=== PATIENT | female | born 1960 | race Caucasian/White ===

== ENCOUNTER → 2017-01-11 | Outpatient (CLI) | payer BC ==
[2017-01-11 13:58] LABS: ESTIMATED AVERAGE GLUCOSE 114 mg/dl; HA1C FLAG Normal (Normal)
[2017-01-11 14:13] LABS: BLOOD UREA NITROGEN 19 mg/dl (7-18); BUN/CREATININE RATIO 24.6 (10-20); CALCIUM 9.2 mg/dl (8.5-10.1); CARBON DIOXIDE 27 mmol/L (21-32); CHLORIDE 103 mmol/L (98-107); CREATININE 0.75 mg/dl (0.60-1.20); GLUCOSE 95 mg/dl (70-99); SODIUM 138 mmol/L (136-145)
== END | disposition home or self-care (01) ==
LOC: C.LABMFLN 09:56
PROVIDERS: ATTEND Family Medicine
DX: I10 Essential (primary) hypertension (principal); E55.9 Vitamin D deficiency, unspecified; R73.01 Impaired fasting glucose

== ENCOUNTER → 2017-06-08 | Outpatient (CLI) | payer BC ==
[~2017-06-08] MED LIST: ASPI81TA28 PO; CHLO50TA PO; ERGO500011 PO; FLUT0.15 NAE; GADAVIST IV PRN; MULT-506 PO; PRLSR20 PO; SACC250C11 PO
--- NOTE | 2017-06-09 15:32 | MAMMOGRAPHY REPORT ---
BREAST MRI OF BOTH BREASTS : 06/08/2017 CLINICAL HISTORY: 56-year-old woman with a history of left breast cancer initially diagnosed in 2005, status post breast conservation treatment. She underwent a right breast biopsy in 2008 for clumped non-mass enhancement seen in the right lower inner quadrant which presumably yielded benign pathology results as the biopsy clip remains in place. A recent biopsy of a suspicious mass in the 4:00 left breast performed on 04/27/2017 yielded infiltrative ductal carcinoma, representing a left breast recur rence. Patient also has dense breasts mammographically, and presents to evaluate extent of disease. COMPARISON: Prior breast MRI dated 01/19/2008, screening mammograms performed 02/20/2011, 03/22/2012, 06/02, 06/04/2014, 01/20/2016, diagnostic mammograms dated 04/27/2017, 06/20/2014, ultrasound and ultrasou nd-guided core biopsy dated 04/27/2017. TECHNIQUE: Using a 1.5 Radha magnet and dedicated breast coil, multisequence axial images were obtain ed through the breasts. After uneventful IV administration of 9 mL of Gadavist, dynamic multiphase c ontrast-enhanced axial images, and sagittal postcontrast were obtained. Temporal subtraction axial i mages and 3-D MIP images are provided. Everything was then reviewed on a 3-D workstation, [employer]. FINDINGS: Right breast: There is mild to moderate background parenchymal enhancement of the right breast. Ther e is a small focus of susceptibility artifact in the lower inner anterior right breast at approximate ly 4:00, that is just medial to clumped non-mass enhancement in the 4:00 to 5:00 middle one third of the right breast, denoting the site of prior MRI guided biopsy. It is difficult to accurately compar e back to the 2008 MRI given differences in technique although the enhancement appears more avid and conspicuous comparing to the prior MRI, currently spending 4.8 cm in AP by 2.5 cm in craniocaudal by 1.2 cm in transverse dimension. The MRI appearance could represent DCIS. There are also at least 3 small irregular enhancing/rim-enhancing masses in the lower outer right breast at approximately 7 to 8:00, none of which were present on the prior 2008 MRI. The first mass is located in the 7:00 to 8:0 0 anterior right breast measuring 5 x 5 x 6 mm, with non-circumscribed margins and predominantly plat eau kinetics with a central focus of washout kinetics. The second mass is in the 7:[address] of the right breast, has angular borders and non-circumscribed margins, measuring 5 x 6 x 6 mm and demonstrates predominantly persistent kinetics. The third non-circumscribed mass is in the posterio r 8:00 axis near the fatglandular interface measuring 4 x 5 x 6 mm and demonstrating central washout kinetics. All of these masses are suspicious for malignancy. Targeted second look ultrasound with possible ultrasound-guided core biopsy is recommended. The right axillary lymph nodes appear similar in size comparing to the 2008 MRI and are likely within the range of normal. Left breast: There is mild to moderate background parenchymal enhancement of the left breast. There is expected architectural distortion in the upper outer middle one third of the left breast, denoting the site of prior lumpectomy. There is an irregular and spiculated dominant enhancing mass in the 4 :00 middle one third of the left breast measuring 13 x 18 x 15 mm, which demonstrates predominantly w ashout kinetics with some peripheral areas of plateau and persistent kinetics and is T2 iso-to hypoin tense, not present in 2008. This represents the recent biopsy-proven carcinoma. There is a second n ew enhancing irregular mass in the approximate 3:00 middle one third of the left breast measuring 6 x 6 x 5 mm (axial page 65/122, sagittal page 18/128), also demonstrates central washout kinetics and i s T2 dark, concerning for multifocal disease. Targeted second look ultrasound and possible ultrasoun d-guided core biopsy is recommended. Some linear and curvilinear areas of enhancement are seen in th e upper outer anterior approximate 2:00 to 3:00 left breast near the surgical site with mild patchy a reas of persistent kinetics, which could represent DCIS or additional multifocal disease. No other s uspicious enhancing masses, definite non-mass enhancement or unexpected areas of architectural distor tion are seen in the left breast. The left axillary and upper outer quadrant intramammary lymph node s appear slightly plump but they appear generally stable mammographically and may be within the range of normal. Nevertheless, additional targeted left axillary ultrasound should be performed at time o f second look ultrasound for the 6 mm mass in the 3:00 left breast to assess morphology. No suspicious internal mammary or subpectoral lymphadenopathy is identified. IMPRESSION: ACR BI-RADS CATEGORY 4: SUSPICIOUS 1. Irregular and spiculated enhancing 18 mm mass in the 4:00 middle one third of the left breast rep resents the recent biopsy-proven infiltrative ductal carcinoma. Based on prior records revealing the patient's history, this represents recurrent disease. 2. There is a second, 6 mm enhancing mass in the left breast at approximately 3:00 middle one third near architectural distortion from a prior lumpectomy site, that was not present on the prior 2008 east MRI and is suspicious for multifocal disease. Targeted second look ultrasound with possible ult rasound-guided core biopsy is recommended. 3. There is more subtle linear non-mass enhancement in the approximate 2:00 anterior left breast tootie t could represent DCIS, located somewhat near the lumpectomy bed. If the 6 mm mass in the 3:00 left breast is identified, this finding will likely not need to be biopsied. 4. There are 3 subcentimeter irregular enhancing masses in the right breast at approximately 7:00 to 8:00 anterior through posterior aspect of the breast, also new comparing to the 2008 breast MRI, tootie t are suspicious for contralateral disease. Targeted second look ultrasound with biopsy of 1 of the masses if identified is recommended. 5. Clumped non-mass enhancement in the lower inner quadrant of the right breast at approximately 4:0 0, with adjacent biopsy marker clip, spanning 4.8 cm in greatest dimension. This clumped non-mass en hancement is more prominent when compared to the 2008 breast MRI, and the MRI biopsy images are unava ilable, to assess for adequate tissue sampling. However, this may not need to be biopsied if 1 of th e other smaller masses in the lateral right breast is identified and biopsied. 6. Slightly plump left axillary lymph nodes, which appear somewhat similar compared to the right axi llary lymph nodes, and also appear relatively stable mammographically comparing back to at least the 2012 mammograms. Nevertheless, targeted left axillary ultrasound is recommended to assess morphology . (If the patient returns to our institution for further workup, would recommend 1 hour and 15 minute a ppointment) The patient will be called to schedule an appointment. Devika Grewal M.D. ay/:06/08/2017 21:22:33 Learning Manager: make up man, [facility] letter sent: Abnormal 4/5 BI-RADS Code: ACR BI-RADS Category 4: Suspicious
== END | disposition home or self-care (01) ==
LOC: C.MRI 08:55
PROVIDERS: ATTEND Internal Medicine Hematology & Oncology
DX: C50.512 Malignant neoplasm of lower-outer quadrant of left female breast (principal); N63.11 Unspecified lump in the right breast, upper outer quadrant; Z86.000 Personal history of in-situ neoplasm of breast; Z80.3 Family history of malignant neoplasm of breast

== ENCOUNTER → 2017-06-16 | Outpatient (CLI) | payer BC ==
[~2017-06-16] MED LIST changes: -GADAVIST IV PRN
[2017-06-16 13:16] LABS: BLOOD UREA NITROGEN 14 mg/dl (7-18); CALCIUM 9.1 mg/dl (8.5-10.1); CARBON DIOXIDE 32 mmol/L (21-32); CREATININE 0.74 mg/dl (0.60-1.20); GLUCOSE 147 mg/dl (70-99); POTASSIUM 3.1 mmol/L (3.5-5.1); SODIUM 138 mmol/L (136-145)
== END | disposition home or self-care (01) ==
LOC: C.LABMFLN 08:44
PROVIDERS: ATTEND Family Medicine
DX: E87.6 Hypokalemia (principal)

== ENCOUNTER 2017-06-21 06:33 | Observation (INO) | payer BC ==
[2017-06-08 10:49] VITALS: BMI 34.0
[2017-06-08 11:38] LABS: BASO % 0.4 %; BASO ABS # 0.03 K/uL (0-0.2); EOS % 1.6 %; EOS ABS # 0.13 K/uL (0-0.5); HEMATOCRIT 40.1 % (37-47); HEMOGLOBIN 13.7 g/dL (12.0-16.0); IG# 0.02 K/uL (0.00-0.02); LYMPH % 21.4 %; LYMPH ABS # 1.72 K/uL (1.2-3.4); MEAN CELL VOLUME 84.2 fL (80-100); MEAN CORPUSCULAR HEMOGLOBIN 28.8 pg (25-34); MEAN CORPUSCULAR HGB CONC 34.2 g/dl (32-36); MEAN PLATELET VOLUME 10.7 fL (7.4-10.4); MONO % 7.6 %; MONO ABS # 0.61 K/uL (0.11-0.59); NEUT % 68.8 %; NEUT ABS # 5.51 K/uL (1.4-6.5); PLATELET COUNT 268 K/uL (130-400); RED CELL DISTRIBUTION WIDTH CV 14.1 % (11.5-14.5); RED CELL DISTRIBUTION WIDTH SD 43.1 fL (36.4-46.3); WHITE BLOOD COUNT 8.02 K/uL (4.8-10.8)
[2017-06-08 11:50] LABS: INR 0.9 (0.9-1.1); PTT PATIENT 25.1 SECONDS (21.0-31.0)
[2017-06-08 12:58] LABS: CALCIUM 9.6 mg/dl (8.5-10.1); CREATININE 0.69 mg/dl (0.60-1.20); POTASSIUM 2.8 mmol/L (3.5-5.1)
[2017-06-21] VITALS (7 sets, daily range): BP systolic 114–160; BP diastolic 69–86; PULSE 86–113; TEMP 36.5–37.1; O2SAT 93–100; Ht 165.1 cm; Wt 93.7 kg
[~2017-06-21] VITALS: Ht 165.1 cm; Wt 93.7 kg
[~2017-06-21 06:33] MED LIST changes: +CEFAZOLIN 2000MG IV PUSH 15 ML IV SCH; +LACTATED RINGER'S 1000ML 1,000 ML IV SCH
[2017-06-21] MEDS ORDERED: MIDAZOLAM HCL 1 MG/ML 2ML VIAL ONE (06:57)
[2017-06-21] MEDS ORDERED: FENTANYL CITRATE INJ 50 MCG/1 ML 2 ML VIAL ONE ×2 (06:57→10:49)
[2017-06-21] MEDS ORDERED: HYDROmorphone INJ 2 MG/ML SYR/VIAL ONE (06:57)
[2017-06-21] MEDS ORDERED: ACETAMINOPHEN 1000 MG/100 ML IV IV ONE (07:07)
[2017-06-21] MEDS ORDERED: Potassium chloride PO (07:18)
[2017-06-21] MEDS ORDERED: BUPIVACAINE 0.25% 30 ML VIAL ONE ×3 (07:36→09:32)
[2017-06-21] MEDS ORDERED: LIDOCAINE/EPINEPHRINE 1% 20 ML VIAL ONE ×2 (07:37→09:32)
[2017-06-21] MEDS ORDERED: BUPIVACAINE 0.5 % 5 MG/1 ML MPF 30ML VIAL ONE (07:38)
[2017-06-21] MEDS ORDERED: BACITRACIN 50000 UNIT VIAL ONE (07:39)
[2017-06-21] MEDS ORDERED: GENTAMICIN SULFATE 40 MG/ML 2 ML VIAL ONE ×2 (07:39→07:41)
[2017-06-21] MEDS ORDERED: ISOSULFAN BLUE 10 MG/ML VIAL 5 ML ONE (07:39)
[2017-06-21] MEDS ORDERED: CEFAZOLIN SOD 1 GM VIAL ONE ×3 (07:40→13:28)
[2017-06-21 07:43] LABS: CALCIUM 8.7 mg/dl (8.5-10.1); CREATININE 0.79 mg/dl (0.60-1.20); POTASSIUM 3.4 mmol/L (3.5-5.1)
[2017-06-21] MEDS ORDERED: LABETALOL HCL IV 5 MG/ML 20ML IV PRN (08:15)
[2017-06-21] MEDS ORDERED: KETOROLAC TROMETHAMINE 30 MG/ML VIAL IV. PRN (08:15)
[2017-06-21] MEDS ORDERED: ATROPINE SULFATE 0.1 MG/ML 5ML SYR IV PRN (08:15)
[2017-06-21] MEDS ORDERED: FENTANYL CITRATE INJ 50 MCG/1 ML 2 ML VIAL IV PRN (08:15)
[2017-06-21] MEDS ORDERED: ONDANSETRON INJ 2 MG/ML 2 ML VIAL IV PRN ×2 (08:15→14:15)
--- NOTE | 2017-06-21 08:15 | History & Physical Bridge Note ---
H&P Re-Evaluation Bridge Note: I have examined the patient, reviewed the History & Physical and in the interval since the performance of the History & Physical I have noted the following changes of clinical significance: No changes noted
--- NOTE | 2017-06-21 08:16 | History and Physical ---
History & Physical Date June 21, 2017. Chief Complaint breast cancer History of Present Illness The patient is a 57 year old female with history of breast cancer for Bilateral mastectomy with reconstruction and sentinel lymph node bx Additional History Hepatic Disease: No Endocrine Disorder: No Kidney Disease: No Heart Disease: No Allergies Coded Allergies: Doxycycline (Verified Allergy, Unknown, PT UNSURE OF RXN, 06/08/17) Home Medications Scheduled Aspirin (Aspirin Ec), 81 MG PO HS Chlorthalidone (Chlorthalidone), 1 TAB PO HS Ergocalciferol (Vitamin D 80704 Unit), 1 TAB PO Q2WK Multivitamin (Multivitamin), 1 TAB PO HS Saccharomyces Boulardii (Probiotic), 1 CAP PO QAM [Potassium chloride], 1 TABS PO QID Scheduled PRN Fluticasone Propionate (Nasal) (Flonase Allergy Relief), 1 SPRAY MAURO UD PRN for PRN Omeprazole (Prilosec), 20 MG PO DAILY PRN for Indigestion Physical Examination Skin: warm/dry Eyes: sclerae normal Head: atraumatic Neck: supple Respiratory/Chest: no respiratory distress Cardiovascular: regular rate, rhythm Abdomen / GI: non tender Neurologic/Psych: alert Diagnosis breast cancer Plan of Treatment for bilateral mastectomy with sentinel lymph node bx- bilateral and reconstruction
[2017-06-21] MEDS ORDERED: PANTOprazole SOD 40 MG TAB PO PRN (09:00)
[2017-06-21] MEDS ORDERED: SCOPOLAMINE 1.5 MG TDSY TD ONE (09:04)
--- NOTE | 2017-06-21 09:49 | DIAGNOSTIC IMAGING REPORT ---
BILATERAL LYMPH SENTINEL NODE ID CLINICAL HISTORY: BREAST CA COMPARISON STUDY: No previous studies for comparison. FINDINGS: A timeout was performed. Both breasts were prepped in sterile fashion. 5 periareolar injections were performed into the right breast utilizing a total dose of 0.6 mCi of technetium 99m Lymphoseek. 5 periareolar injections were performed into the left breast utilized a total dose of 0.5 mCi of technetium 99m Lymphoseek. No imaging was performed. The patient was sent to the operating room for intraoperative localization. IMPRESSION: Bilateral lymphoscintigraphy breast injections were performed. Electronically signed by: Osmin Lai M.D. 06/21/2017 9:47 AM Dictated Date/Time: 06/21/2017 9:45 AM
[2017-06-21] MEDS ORDERED: DiphenhydrAMINE HCL 50 MG/ML VIAL ONE (10:12)
[2017-06-21] MEDS ORDERED: METOCLOPRAMIDE HCL INJ 5 MG/ML 2 ML VIAL ONE (10:12)
[2017-06-21] MEDS ORDERED: PROPOFOL IV EMULSION 10 MG/ML 20 ML VIAL ONE (10:12)
[2017-06-21] MEDS ORDERED: ONDANSETRON INJ 2 MG/ML 2 ML VIAL ONE (10:12)
[2017-06-21] MEDS ORDERED: LIDOCAINE HCL 2% 2 ML VIAL (20MG/ML) ONE (10:12)
--- NOTE | 2017-06-21 11:58 | [facility] Operative Report ---
Operative Report Operative Date June 21, 2017. Pre-Operative Diagnosis breast cancer Post-Operative Diagnosis same as preop Procedure(s) Performed Bilateral Breast Mastectomy with Bilateral [place] Lymph Node Biopsy ( Injection Only) - Dr. Agudelo Bilateral First Stage Immediate Breast Reconstruction with Tissue Expanders an Acellular Dermal Matrix - Dr. Thao Nuc Med @ [address] Kyrie Agudelo, Dr. Karon Thao Hearing Aid Specialist Surgeon(s) Mia Herndon PA-C Estimated Blood Loss 40cc (mastectomy procedures) Specimens Frozen Specimen #2: -left sentinel lymph node - out of room to lab at 1113 by Julius Wilson OR [place] Anesthesia Type General Complication(s) none I attest to the content of the Intraoperative Record and any orders documented therein. Any exceptions are noted below.
[2017-06-21] MEDS ORDERED: NEOSTIGMINE METHYLSULFATE 5 MG/5 ML SYR ONE (12:32)
[2017-06-21] MEDS ORDERED: GLYCOPYRROLATE INJ 0.2 MG/ML VIAL ONE (12:32)
--- NOTE | 2017-06-21 12:37 | OPERATIVE REPORT ---
DATE OF OPERATION: 06/21/2017 NAME OF OPERATION: Bilateral mastectomy with sentinel lymph node biopsy. PREOPERATIVE DIAGNOSIS: Left breast cancer with recurrence. POSTOPERATIVE DIAGNOSIS: Left breast cancer with recurrence. STAFF SURGEON: Kyrie Agudelo MD. PROJECT MANAGER: Mia Herndon. Also Dr. Thao proceeded with reconstruction. DESCRIPTION OF PROCEDURE: The patient was brought in the operating room and placed on the operating table in supine position. Her breasts had been marked. She had undergone injection in nuclear medicine for sentinel lymph node biopsy. Garcia catheter, pneumatic stockings, and orogastric tube were placed. Her neck, chest, and upper abdomen were prepped and draped in the usual fashion and axilla bilaterally using Betadine. She was then draped in the usual fashion. The right side was approached first because there was no proven cancer on that side. Incision was made in the right axilla using 0.5% plain Marcaine to anesthetize the skin. Carrying dissection down deeply, I was able to identify some scant activity and found a very large lymph node, which was sent for frozen section and found to be negative. During the frozen section, we performed mastectomy on the right side making elliptical incisions just above and below the areola. The lower incision was actually under a prior scar from a breast reduction. A superior flap was created dissecting the breast tissue away from the subcutaneous tissue encountering scar tissue from the previous reduction. The lower flap was also taken down to the upper abdominal wall. The breast tissue was then dissected away from the pectoralis major muscle taking the fascia, and then, the breast was marked with a long silk suture lateral. At this point, Dr. Thao took over on the right side proceeding with her reconstruction. I proceeded to the left side, again making incision in the left axilla, finding a very large lymph node, which was also noted preoperatively. It was sent for frozen section and found to be negative. During the frozen section, we performed mastectomy on the left side encountering several areas of scar tissue from reduction and also from prior breast surgery. The breast tissue was dissected away from the pectoralis muscle taking the fascia, and then, the specimen was marked with a long silk suture lateral. At this point, Dr. Thao proceeded with her portion of the procedure. I attest to the content of the Intraoperative Record and any orders documented therein. Any exception s are noted below.
[2017-06-21] MEDS ORDERED: ROCURONIUM BROMIDE 10 MG/ML 5 ML VIAL ONE (13:06)
--- NOTE | 2017-06-21 13:49 | [facility] Post Operative Brief Note ---
Immediate Operative Summary Operative Date June 21, 2017. Pre-Operative Diagnosis breast cancer Post-Operative Diagnosis same as preop Procedure(s) Performed Bilateral Breast Mastectomy with Bilateral [place] Lymph Node Biopsy ( Injection Only) - Dr. Agudelo Bilateral First Stage Immediate Breast Reconstruction with Tissue Expanders an Acellular Dermal Matrix - Dr. Thao Nuc Med @ [address] Kyrie Agudelo, Dr. Karon Thao Forensics Analyst Surgeon(s) Mia Herndon PA-C Estimated Blood Loss 50ml Findings Consistent with Post-Op Diagnosis Specimens Fresh Specimen: B.) Left Breast Tissue - long silk lateral Drains None JPx2 Anesthesia Type General Complication(s) none Disposition Disposition: Recovery Room / PACU
[2017-06-21] MEDS ORDERED: OXAZEPAM 10MG CAP PO PRN (14:15)
[2017-06-21] MEDS ORDERED: PROMETHAZINE HCL INJ 12.5 MG in SODIUM CHLORIDE 0.9% 50ML 50 ML IV PRN (14:15)
[2017-06-21] MEDS ORDERED: ACETAMINOPHEN 325 MG TAB PO PRN (14:15)
[2017-06-21] MEDS ORDERED: OXYCODONE/ACETAMINOPHEN 5-325 TAB PO PRN ×2 (14:15)
[2017-06-21] MEDS ORDERED: DiphenhydrAMINE HCL 50 MG/ML VIAL IV PRN (14:15)
[2017-06-21] MEDS ORDERED: MoRPHine SULFATE 4 MG/ML 1 ML CARP\\VIAL IV PRN ×2 (14:15)
[2017-06-21] MEDS ORDERED: IV FLUIDS COMPLETED PRN (14:30)
[2017-06-21] MEDS ORDERED: KETOROLAC TROMETHAMINE 30 MG/ML VIAL ONE (14:53)
--- NOTE | 2017-06-21 15:07 | Anesthesiology Progress Note ---
Anesthesia Post Op Note Date & Time June 21, 2017 at 15:07 Vital Signs Pain Intensity: 0 Vital Signs Past 12 Hours Date Time Temp Pulse Resp B/P (MAP) Pulse Ox O2 Delivery O2 Flow Rate FiO2 06/21/17 15:00 99 14 119/82 95 Nasal Cannula 3 06/21/17 14:50 98 14 131/82 95 Nasal Cannula 3 06/21/17 14:40 36.5 97 14 138/80 95 Nasal Cannula 3 06/21/17 14:30 100 14 137/80 96 Nasal Cannula 3 06/21/17 14:20 104 16 134/77 97 Oxymask 5 06/21/17 14:10 97 16 131/70 96 Oxymask 5 06/21/17 14:02 36.4 94 16 119/71 95 Oxymask 10 06/21/17 07:22 36.5 86 20 160/86 100 Room Air Notes Mental Status: alert / awake / arousable, participated in evaluation Pt Amnestic to Procedure: Yes Nausea / Vomiting: adequately controlled Pain: adequately controlled Airway Patency, RR, SpO2: stable & adequate BP & HR: stable & adequate Hydration State: stable & adequate Anesthetic Complications: no major complications apparent
--- NOTE | 2017-06-21 15:31 | OPERATIVE REPORT ---
DATE OF OPERATION: 06/21/2017 PREOPERATIVE DIAGNOSES: Left breast carcinoma, status post bilateral mastectomy, desire for breast reconstruction. POSTOPERATIVE DIAGNOSES: Left breast carcinoma, status post bilateral mastectomy, desire for breast reconstruction. PROCEDURE: First stage immediate bilateral breast reconstruction with tissue expanders and AlloDerm. SURGEON: Karon Thao M.D. ORAL HYGIENIST: Mia Herndon PA-C. ANESTHESIA: General. COMPLICATIONS: None. INDICATION FOR THE PROCEDURE: Patient is a 57-year-old female referred to me by Dr. Agudelo who required mastectomy for left breast carcinoma and desired reconstruction. We discussed multiple options including tissue treasury director based reconstruction, autologous reconstruction, and no reconstruction. After discussion, she elected to proceed with tissue treasury director placement at the time of mastectomy. BRIEF DESCRIPTION OF THE PROCEDURE: The risks, benefits and alternatives of the procedure were explained to the patient who agreed and signed consent. She was identified and marked in the preoperative holding area. She was marked with Dr. Agudelo so we could discuss incisional planning. Patient had a prior history of reduction mammoplasty, the Contreras pattern incision with an inframammary fold scar that was about 2 cm superior to the folds bilaterally. Discussed whether to proceed with a Contreras pattern skin resection versus traditional elliptical mastectomy incision, placing the incision along the inframammary fold. We ultimately elected to proceed with elliptical incision. Patient was brought to the operating room, placed under anesthesia and underwent bilateral mastectomy. After Dr. Agudelo had completed the right noncancerous mastectomy, I scrubbed to begin reconstruction of the right breast. The pocket was examined for hemostasis and hemostasis was achieved with electrocautery. It was irrigated with normal saline. I began with elevation of the pectoralis major muscle along the attachments to the rib, medially to the sternum. I did not release any of the sternal attachments. The pectoralis major muscle was then elevated using electrocautery taking care to cauterize the perforating vessels. The medial tendinous insertions were also cauterized. Once the pocket had been created, I selected a piece of thick medium contour AlloDerm and this was soaked in saline bath prior to implantation. I began by suturing the AlloDerm to the rib periosteum and to the inframammary fold using U sutures. This was performed all the way along the inframammary fold. The pocket was then measured and noted to have a base diameter of 14 cm. Therefore, an Allergan 133 MVT style treasury director was selected. It was prepared on the back table by aspirating air through the port and soaking in triple antibiotic irrigation. It was then placed into the pocket and suture tabs were sutured down at all 3 locations to periosteum and muscle fascia. Prior to implantation, a total of 50 mL of sterile injectable saline was injected through the fill port. Closure of the pocket was then begun using running 2-0 Vicryl suture to suture the inferior border of the pectoralis muscle to the superior edge of the AlloDerm. Laterally the AlloDerm was sutured down using 2-0 Vicryl U sutures to serratus fascia. Excess AlloDerm was trimmed. I then instilled an extra 50 mL of injectable saline prior to beginning closure. A 15 Lao Bharat drain was placed in the wound bed and brought out through a separate stab incision. The wound was reapproximated using 2-0 Vicryl deep dermal suture, 3-0 PDS running superficial dermal Quill suture and 3-0 Monocryl running subcuticular suture. Due to mismatch in the amount of skin in the superior and inferior flaps, Vicryl closure was performed using essentially splitting or having the location of the sutures to try to provide better match. Prior to placing the Quill suture, an additional 100 mL of saline was placed after using the Magna Finder to identify the port. This allowed more of a shape of the breast prior to closure with the Quill and Monocryl. Drain was sutured into place using 3-0 nylon suture. A 10 mL of 0.25% Marcaine plain was instilled through the RAKESH drain followed by 10 mL of sterile saline. The right axillary node incision was closed using 2-0 Vicryl deep dermal sutures and 4-0 Monocryl running subcuticular suture. Once Dr. Agudelo completed the mastectomy on the right side, an identical procedure was performed and 200 mL total of injectable saline was placed. There was reasonable symmetry following the end of the case. It should be noted there were standing cutaneous deformities medially and laterally. Due to minimal contour of the breast following placement of only 200 mL, I did not elect to treat the dog ears at this point in time and would prefer to see the shape of the breast as expansion occurs. Dog ears can be revised at the time of implant exchange or nipple reconstruction if the patient elects to proceed with this. I only placed 200 mL in each treasury director due to concern for tension on the skin as closure was somewhat tight. Procedure was tolerated well. Dry dressings were placed. The patient was awakened and transferred to recovery room in satisfactory condition. Mia Herndon PA-C was present and scrubbed throughout the entire procedure and was instrumental in assisting in retraction and simultaneous wound closure as well as preparing of the tissue expanders. I attest to the content of the Intraoperative Record and any orders documented therein. Any exception s are noted below.
[2017-06-21] MEDS: MoRPHine SULFATE 4 MG/ML 1 ML CARP\\VIAL IV PRN ×2 (16:21→23:33)
[2017-06-21] MEDS: POTASSIUM CHLORIDE 10 MEQ TABCR PO SCH ×2 (17:46→20:31)
[2017-06-21] MEDS: CEFAZOLIN IV 2,000 MG in SYRINGE 0 ML IV SCH (19:54)
[2017-06-21] MEDS: LACTATED RINGER'S 1000ML 1,000 ML IV SCH (20:51)
[2017-06-21] MEDS ORDERED: MULTIVITAMIN TAB PO SCH (21:00)
[2017-06-21] MEDS ORDERED: CHLORTHALIDONE 25 MG TAB PO SCH (21:00)
[2017-06-22] VITALS (11 sets, daily range): BP systolic 110–124; BP diastolic 67–74; PULSE 82–98; TEMP 36.2–36.9; O2SAT 85–97
[2017-06-22] MEDS: LACTATED RINGER'S 1000ML 1,000 ML IV SCH (03:24)
[2017-06-22] MEDS: CEFAZOLIN IV 2,000 MG in SYRINGE 0 ML IV SCH (03:35)
--- NOTE | 2017-06-22 08:02 | Surgery Progress Note ---
Surgery Progress Note Date of Service June 22, 2017. Subjective Post OP Day: 1 + feeling well, + ambulating, + pain controlled VSS with O2 by nasal cannula Objective Vital Signs: Date Time Temp Pulse Resp B/P (MAP) Pulse Ox O2 Delivery O2 Flow Rate FiO2 06/22/17 03:32 95 Nasal Cannula 2.0 06/22/17 03:32 36.8 86 16 124/68 (86) 85 Room Air 06/22/17 00:23 98 06/21/17 23:30 36.9 104 16 121/74 (90) 94 Room Air 06/21/17 23:30 Room Air 06/21/17 19:00 37.0 109 18 114/69 (84) 93 Nasal Cannula 06/21/17 18:15 37.1 113 16 126/84 (98) 95 Nasal Cannula 06/21/17 16:30 36.6 100 16 118/76 (90) 94 Nasal Cannula 06/21/17 16:00 36.6 105 16 119/75 (90) 95 Nasal Cannula 06/21/17 15:30 94 Nasal Cannula 3.0 06/21/17 15:30 36.8 98 18 120/75 (90) 94 Nasal Cannula 3.0 06/21/17 15:30 94 Nasal Cannula 3.0 06/21/17 15:25 36.4 99 14 129/78 94 Nasal Cannula 3 06/21/17 15:15 97 14 122/76 95 Nasal Cannula 3 06/21/17 15:00 99 14 119/82 95 Nasal Cannula 3 06/21/17 14:50 98 14 131/82 95 Nasal Cannula 3 06/21/17 14:40 36.5 97 14 138/80 95 Nasal Cannula 3 06/21/17 14:30 100 14 137/80 96 Nasal Cannula 3 06/21/17 14:20 104 16 134/77 97 Oxymask 5 06/21/17 14:10 97 16 131/70 96 Oxymask 5 06/21/17 14:02 36.4 94 16 119/71 95 Oxymask 10 Physical Exam: Bharat drainage (bloody and serous) General Appearance: WD/WN, no apparent distress Incision(s): clean, dry, intact, no erythema Assessment & Plan s/p bilateral mastectomy with immediate first stage breast reconstruction using tissue expanders and alloderm matrix 1. O2 by nasal cannula, dropped on room air last night. continue to wean back to room air. IS encouraged 2. pain controlled and ambulating. d/c home when VSS. Post-op instructions reviewed with the patient
--- NOTE | 2017-06-22 08:06 | Discharge Instructions ---
Discharge Instructions Date of Service June 22, 2017. Admission Reason for Admission: Left Breast Cancer W/Nm Lymph Inj Discharge Discharge Diagnosis / Problem: left breast cancer Discharge Goals Goal(s): Decrease discomfort, Improve function Activity Recommendations Activity Limitations: per Instructions/Follow-up section ACTIVITY RECOMMENDATIONS: __Normal activities _x_No bending, lifting or straining. Limit arm movements above shoulder height _x_No driving __Driving allowed when you are off pain medications _x_Walking permitted __You should have help at home for ___ days DRESSINGS: __No dressings required _x_Keep dressings dry/in place until first office visit __Remove dressings ___ and leave dressings off __Apply ice ___ days __Remove dressings and reapply garment __Apply antibiotic ointment (Bacitracin, Neosporin, etc) to wounds 3-4 times/ day for 10 days BATHING: _x_Keep dressings dry __Sponge bathing permitted __Showering permitted x__No swimming, hot tubs or soaking in a tub. No showers while drains are in place. You may sponge bathe/wash hair with help if you keep water away from incisions/drains MEDICATIONS: Resume previous medications unless instructed otherwise by your surgeon. _x_Do not use aspirin, Motrin, Advil or Ibuprofen as these may promote bleeding. Please use Tylenol. _x_Prescription(s) provided: pain medication and antibiotics were provided at your last office visit. Start antibiotics today. You must remain on antibiotics while drains are in place. Call office if you need a refill OTHER INSTRUCTIONS: _x_Record drain output 2-3 times per day. Drains are ready to be removed when output is 10cc or less for 24 hours x 2 days. Sometimes one drain is ready to be removed before the other and this is OK- we will remove one drain at a time if it is ready SPECIAL CARE INSTRUCTIONS: * It is normal to have a mild fever after surgery. If your temperature is higher than 101.5 degrees F, please call the office at [phone]. * Constipation is a typical side effect of pain medication. An over-the- counter stool softener will help relieve this. * Leaking around surgical drains may occur and should not cause concern. Sometimes these drains become clogged. If this happens, remove the bulb and milk the clot out of the tube, then replace the bulb. * Drainage from wounds after liposuction is normal and should be expected. Garments will become soiled. You should protect furniture and bedding. This drainage should mostly subside within 2-3 days. Leave garments in place unless instructed to remove them. * If you have unusual drainage from a wound or are concerned you have an infection or have any questions or concerns, please call the office at [phone]. FOLLOW UP VISIT: If not already scheduled, please call the office, , when you return home after surgery to schedule an appointment to be seen in __2_ days. We are in office the rest of the week- call anytime with questions or concerns. . Current Hospital Diet Patient's current hospital diet: Regular Diet Discharge Diet Recommended Diet: Regular Diet Procedures Procedures Performed: Bilateral Breast Mastectomy with Bilateral [place] Lymph Node Biopsy ( Injection Only) - Dr. Agudelo Bilateral First Stage Immediate Breast Reconstruction with Tissue Expanders an Acellular Dermal Matrix - Dr. Thao Nuc Med @ 0800 Pending Studies Studies pending at discharge: yes List of pending studies: pathology Medical Emergencies . Who to Call and When: Medical Emergencies: If at any time you feel your situation is an emergency, please call 911 immediately. . Non-Emergent Contact Non-Emergency issues call your: Primary Care Provider, Surgeon . "Provider Documentation" section prepared by Mia Herndon. . [place] Drug Monitoring Program Search Results: no issues identified
[2017-06-22] MEDS ORDERED: MULTIVITAMIN TAB PO SCH (09:00)
[2017-06-22] MEDS ORDERED: SACCHAROMYCES BOUL (FLORASTOR) 250 MG CAP PO SCH (09:00)
[2017-06-22] MEDS ORDERED: ENOXAPARIN 40 MG/0.4 ML SYR SQ SCH (09:00)
[2017-06-22] MEDS: POTASSIUM CHLORIDE 10 MEQ TABCR PO SCH (09:37)
--- NOTE | 2017-06-22 10:12 | Anesthesiology Progress Note ---
Anesthesia Post Op Note Date & Time June 22, 2017 at 10:12 Vital Signs Pain Intensity: 3.0 Vital Signs Past 12 Hours Date Time Temp Pulse Resp B/P (MAP) Pulse Ox O2 Delivery O2 Flow Rate FiO2 06/22/17 10:06 36.9 87 15 95 Room Air 06/22/17 09:13 95 Room Air 06/22/17 09:00 87 95 Room Air 06/22/17 08:55 89 90 Room Air 06/22/17 08:50 89 95 Room Air 06/22/17 08:05 36.9 06/22/17 07:45 36.2 82 15 116/74 (88) 93 Nasal Cannula 2.0 06/22/17 07:10 Nasal Cannula 2.0 06/22/17 03:32 95 Nasal Cannula 2.0 06/22/17 03:32 36.8 86 16 124/68 (86) 85 Room Air 06/22/17 00:23 98 06/21/17 23:30 36.9 104 16 121/74 (90) 94 Room Air 06/21/17 23:30 Room Air Notes Mental Status: alert / awake / arousable, participated in evaluation Pt Amnestic to Procedure: Yes Nausea / Vomiting: adequately controlled Pain: adequately controlled Airway Patency, RR, SpO2: stable & adequate BP & HR: stable & adequate Hydration State: stable & adequate Anesthetic Complications: no major complications apparent
--- NOTE | 2017-06-23 12:36 | Discharge Summary ---
Discharge Summary Date of Service June 23, 2017. Admission Date/Reason June 21, 2017 at 14:08 Left Breast Cancer W/Nm Lymph Inj. Discharge Date/Disposition June 22, 2017 Home Diagnosis Principal Diagnosis: history of left breast cancer, encounter for breast reconstruction following mastectomy Medication Reconciliation Continued Medications: Chlorthalidone (Chlorthalidone) 50 Mg Tab 1 TAB PO HS Ergocalciferol (Vitamin D 06022 Unit) 50,000 Unit Cap 1 TAB PO Q2WK, CAP Fluticasone Propionate (Nasal) (Flonase Allergy Relief) 50 Mcg/Act Spr 1 SPRAY MAURO UD PRN for PRN Multivitamin (Multivitamin) Tab 1 TAB PO HS, TAB Omeprazole (Prilosec) 20 Mg Capcr 20 MG PO DAILY PRN for Indigestion, CAP Saccharomyces Boulardii (Probiotic) 250 Mg Cap 1 CAP PO QAM [Potassium chloride] () 1 TABS PO QID Discontinued Medications: Aspirin (Aspirin Ec) 81 Mg Tab 81 MG PO HS Admission Physical Exam As per Admitting History & Physical. Hospital Course Patient presented to [facility] with history of left breast cancer. She was taken to the OR and underwent bilateral mastectomy with bilateral SLNB by Dr. Agudelo and immediate first stage breast reconstruction using tissue expanders and alloderm matrix by Dr. Thao. There were no intraoperative complications. 200cc of injectable saline were placed in each tissue patient consumer marketer. She was taken to recovery and transferred to med/surg for observation. Her O2 sats dropped on room air but VSS with 2L oxygen by nasal cannula. On POD#1, her oxygen was weaned back to room air and her vitals remained stable. She was ambulating and tolerating a regular diet. On exam, her incisions were CDI and drains had bloody and serous output. She was discharged home with instructions to follow- up as an outpatient. Discharge Instructions Please refer to the electronic Patient Visit Report (Discharge Instructions) for additional information.
== END 2017-06-22 14:00 | disposition home or self-care (01) ==
LOC: C.ACU 06:33 → C.MSN 14:08 → ENRESERV 15:14
PROVIDERS: ADMIT Plastic Surgery; ATTEND Plastic Surgery
DX: C50.512 Malignant neoplasm of lower-outer quadrant of left female breast (principal); R59.0 Localized enlarged lymph nodes; E55.9 Vitamin D deficiency, unspecified; E87.6 Hypokalemia; E78.5 Hyperlipidemia, unspecified; R73.03 Prediabetes; E66.9 Obesity, unspecified; I10 Essential (primary) hypertension; K21.9 Gastro-esophageal reflux disease without esophagitis; Z82.49 Family history of ischemic heart disease and other diseases of the circulatory system; Z79.82 Long term (current) use of aspirin; Z88.1 Allergy status to other antibiotic agents; Z83.3 Family history of diabetes mellitus